=== PATIENT | female | born 1945 | race Native Hawaiian/Other Pacific Islander ===

== ENCOUNTER 2016-05-22 13:36 | Outpatient (CLI) | payer OTHER | END 2016-05-22 20:30 | disposition home or self-care (01) | LOC: MAMMO 13:36 | DX: Z12.31 Encounter for screening mammogram for malignant neoplasm of breast (principal) | CPT/HCPCS: G0202-TC ==

== ENCOUNTER 2017-07-22 10:43 | Outpatient (CLI) | payer OTHER | END 2017-07-22 21:49 | disposition home or self-care (01) | LOC: MAMMO 10:43 | DX: Z12.31 Encounter for screening mammogram for malignant neoplasm of breast (principal) ==

== ENCOUNTER 2018-07-24 12:56 | Outpatient (CLI) | payer OTHER | END 2018-07-24 21:38 | disposition home or self-care (01) | LOC: MAMMO 12:56 | DX: N64.59 Other signs and symptoms in breast (principal); Z12.31 Encounter for screening mammogram for malignant neoplasm of breast ==

== ENCOUNTER 2019-11-13 08:35 | Outpatient (CLI) | payer OTHER | END 2019-11-13 19:57 | disposition home or self-care (01) | LOC: MAMMO 08:35 | DX: Z12.31 Encounter for screening mammogram for malignant neoplasm of breast (principal) ==

== ENCOUNTER 2019-11-23 17:18 | Outpatient (CLI) | payer OTHER | END 2019-11-23 19:27 | disposition home or self-care (01) | LOC: LABW 17:18 | DX: D50.8 Other iron deficiency anemias (principal) | CPT/HCPCS: 82272 ==

== ENCOUNTER 2020-03-06 18:30 | Outpatient (CLI) | payer OTHER | END 2020-03-06 19:02 | disposition home or self-care (01) | LOC: LAB 18:30 | PROVIDERS: ATTEND Internal Medicine Gastroenterology | DX: K59.1 Functional diarrhea (principal); K58.9 Irritable bowel syndrome, unspecified | CPT/HCPCS: 82272; 82705; 83630; 87015; 87045; 87324; 87328; 87329; 87338; 87449; 87899 ==

== ENCOUNTER 2021-02-07 10:40 | Outpatient (CLI) | payer OTHER | END 2021-02-07 20:05 | disposition home or self-care (01) | LOC: MAMMO 10:40 | PROVIDERS: ATTEND Internal Medicine | DX: Z12.31 Encounter for screening mammogram for malignant neoplasm of breast (principal) ==

== ENCOUNTER 2022-02-22 10:40 | Outpatient (CLI) | payer OTHER | END 2022-02-22 19:50 | disposition home or self-care (01) | LOC: MAMMO 10:40 | PROVIDERS: ATTEND Internal Medicine | DX: Z12.31 Encounter for screening mammogram for malignant neoplasm of breast (principal) ==

== ENCOUNTER 2022-10-30 11:22 | Outpatient (CLI) | payer OTHER ==
[2022-10-30 11:41] LABS: PLATELET COUNT 189 K/uL (152-353)
[2022-10-30 12:11] LABS: POTASSIUM 4.1 mmol/L (3.6-5.2)
== END 2022-10-30 19:15 | disposition home or self-care (01) ==
LOC: LABW 11:22
PROVIDERS: ATTEND Nurse Practitioner Family
DX: D64.9 Anemia, unspecified (principal); R16.2 Hepatomegaly with splenomegaly, not elsewhere classified
CPT/HCPCS: 36415; 80053; 82728; 83540; 83550; 85027